=== PATIENT | female | born 1955 | race Hispanic/Latino ===

== ENCOUNTER 2017-02-27 22:32 | Observation (INO) | payer OTHER, MEDICAID ==
[~2017-02-27] VITALS: Ht 157.5 cm; Wt 90.3 kg
[~2017-02-27 22:32] MED LIST: ARIP5TAB13 PO; ASA325 PO; CLONAZEPAM1 M1 PO; FLE10 PO; GABA300C PO; INSU100C6 SQ; LISI40TA13 PO; OXYC-176 PO; PRAV80TA2 PO; [UNRECOGNIZED DRUG - CODE] TOP; levothyroxine
[2017-02-27 22:33] VITALS: BP 157/96; PULSE 109; RESP 18; O2SAT 96
[2017-02-27 23:38] LABS: BASOPHILS % (AUTO) 0.3 % (0-3); EOSINOPHILS % (AUTO) 2.4 % (0-5); Mean Corpuscular Hemoglobin 27.5 pg (27.0-35.0); Mean Corpuscular Volume 85.2 fL (81-100); NEUTROPHILS % (AUTO) 55.1 % (40-74); Platelet Count 154 bil/L (150-400)
[2017-02-28] VITALS (10 sets, daily range): BP systolic 92–125; BP diastolic 53–77; PULSE 75–109; RESP 14–20; O2SAT 95–98
[2017-02-28 00:14] LABS: Magnesium 1.6 mg/dL (1.6-2.6); TROPONIN T 0.01 ug/L (0.0-0.011)
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
[2017-02-28] MEDS ORDERED: oxyCODONE-Acetamin 5-325 mg Tablet PO ONE (00:35)
[2017-02-28] MEDS ORDERED: HYDROmorphone 1 mg/mL Inj IVPUSH ONE ×2 (01:35→01:50)
[2017-02-28 01:55] LABS: APPEARANCE,URINE HAZY (CLEAR,HAZY); COLOR,URINE YELLOW (YELLOW); OCCULT BLOOD,URINE TRACE (NEGATIVE); PH,URINE 5.5 (5.0-8.0); UROBILINOGEN,URINE NORMAL (NORMAL); YEAST,URINE FEW (NONE SEEN)
[2017-02-28] MEDS ORDERED: 0.9% Sodium Chloride 500 ML IV ONE (02:15)
[2017-02-28] MEDS ORDERED: LidocaineVisc 2%:Antacid 1:1 10 mL Syringe PO ONE (02:30)
[2017-02-28] MEDS: 0.9% Sodium Chloride 1,000 ML IV SCH ×2 (03:24→15:54)
[2017-02-28] MEDS ORDERED: Polyethylene Glycol (PEG) 17 Gm Powder PO PRN (03:25)
[2017-02-28] MEDS ORDERED: Ondansetron 2 mg/mL 2 mL Inj IVPUSH PRN (03:25)
[2017-02-28] MEDS ORDERED: Alum-Mag Hydrox-Simeth 30 mL Suspension PO PRN (03:25)
[2017-02-28] MEDS ORDERED: Senna-Docusate 8.6-50 mg Tablet PO PRN (03:25)
[2017-02-28] MEDS ORDERED: Atropine 1 mg/10 mL (Code) Syringe IVPUSH PRN (03:25)
[2017-02-28] MEDS ORDERED: Glucose 40% Oral Gel 15 Gm Tube PO PRN (03:35)
[2017-02-28 03:53] LABS: INR 0.94 ratio
[2017-02-28 04:03] LABS: Magnesium 1.7 mg/dL (1.6-2.6)
[2017-02-28] MEDS ORDERED: depression med (05:21)
[2017-02-28] MEDS ORDERED: ASPI-973 PO (05:21)
--- NOTE | 2017-02-28 05:27 | PCM.HPMED ---
Subjective Date of Service Feb 28, 2017 Primary Provider: Admitting Physician: Rose Lei DO Primary Care Physician: Tyson Ramirez MD Attending Physician: Rose Lei DO Admit Status: From the Emergency Department Chief Complaint: Chest pain History of Present Illness: Patient is a 61 y.o. F with a medical history of SVT status post cardiac ablation, lupus, diabetes mellitus, hyperlipidemia, and hypertension. She presented to the ED 02/27/17 via private vehicle complaining of chest pain that began suddenly at 2200 in the evening while getting ready for bed. Pain is described as someone "sitting" on her chest, rated 8/10 at the worse and currently 2/10, with radiation down into her upper right abdomen and her back, fluctuates in scale but remains constant. Pain is made worse with exertion and improves with rest. Associated symptoms include nausea, shortness of breath with exertion. Patient denies diaphoresis, palpitations, vomiting. At time of examination patient stated the pain medications in the ED have helped and she feels like her abdominal/flank pain is worse, she denies current shortness of breath. Patient stated that she has had right sided flank pain that has been present for almost a year that worsened two days ago, patient stated that pain is cramping sometimes sharp, with radiation down right flank to hip, abdomen, back , increased with laying flat, decreases with pain medication. Associated symptoms include dysuria, constipation (patient stated that she has tried multiple OTC remedies for constipation with little to no effect, last BM two days ago, without blood, patient is able to pass gas). Patient stated that she has chronic back pain and has had to increase her use of hydrocodone to help with pain, stated she has been doubling her dose. Patient denies syncope, fever , chills, diarrhea, PND, orthopnea. Patient stated that her primary care physician has ordered a repeat upper and lower endoscopy but she has been unable to complete the bowel preparation, additionally PCP ordered an abdominal US to be done but patient has not scheduled appointment yet In the ED patient given nitroglycerin x 2 with minimal relief, rebound headache occurred, trial of GI cocktail had no effect on abdominal pain, Dilaudid x 2 was successful in improving pain but did not completely resolve it, lorazepam was given and this further helped her pain. Give risck factors for hypercoagulable state patient was sent for CTA chest and CT abdomen and pelvis, CT scans were positive for hyposteatosis and splenomegaly (13cm) but negative for PE, infection, abscess. Patient reassessed and stated that her chest pain has improved, however, her abdominal pain still persists. Review of Systems: A comprehensive review of systems was conducted with the patient and found to be negative except as above in the History of Present Illness Allergies Coded Allergies: Penicillins (Verified Allergy, Unknown, 06/13/15) Sulfa (Sulfonamide Antibiotics) (Verified Allergy, Unknown, 06/13/15) acetaminophen (Verified Allergy, Unknown, 06/13/15) bupropion (Verified Allergy, Unknown, 06/13/15) duloxetine (Verified Allergy, Unknown, 01/31/15) hydrocodone (Verified Allergy, Unknown, 01/31/15) Pt denies allergies to hydrocodone - currently takes this medication prn Home Medications ([levothyroxine]) 37.5 MCG DAILY Aripiprazole-Expunged Drug, Do Not Renew! (Aripiprazole-Expunged Drug, Do Not Renew!) 5 Mg Tablet 5 MG PO BID Aspirin-Expunged Drug, Do Not Renew! (Aspirin-Expunged Drug, Do Not Renew!) 325 Mg Tablet 325 MG PO DAILY Clobetasol-Expunged Drug, Do Not Renew! (Temovate 0.05%-Expunged Drug, Do Not Renew!) 60 Mg Tube 1 APPL TOP PRN APPLY TO AFFECTED AREA Cyclobenzaprine-Expunged Drug, Do Not Renew! (Flexeril-Expunged Drug, Do Not Renew!) 10 Mg Tablet 10 MG PO DAILY Gabapentin-Expunged Drug, Do Not Renew! (Neurontin-Expunged Drug, Do Not Renew! ) 300 Mg Capsule 300 MG PO HS INSULIN GLARGINE-Expunged Drug, Do Not Renew! (Lantus-Expunged Drug, Do Not Renew!) 100 Unit/1 Ml Cartridge 5 SQ AM Lisinopril-Expunged Drug, Do Not Renew! (Lisinopril-Expunged Drug, Do Not Renew! ) 40 Mg Tablet 40 MG PO BID ClonazePAM-Expunged Drug, Do Not Renew! (ClonazePAM-Expunged Drug, Do Not Renew! ) 1 Mg Tablet 2 MG PO BID PRN PRN Take up to twice a day as needed. Oxycodone/APAP-Expunged Drug, Do Not Renew! (Percocet 5/325-Expunged Drug, Do Not Renew!) 1 Each Tablet 1 TAB PO TIDP PRN PRN Jessica Hilton. [id number] 1955 06/25/2016 01:10 PM Page: 12/05 MEDICATIONS Medication Dose Sig Description Comments Abilify 5 mg tablet 5 mg take 1.5 Tablet by oral route 2 times every day Will start 5-24 aspirin 325 mg tablet,delayed release 325 mg take 1 tablet by oral route every day clobetasol 0.05 % Ointment 0.05 % apply by topical route 2 times every day a thin layer to the affected area(s) clonazepam 2 mg tablet 2 mg take 1 tablet by oral route 4 times every day Correctol 5 mg tablet 5 mg luis armando e4 tablets by oral route Durable Medical Equipment wheelchair Flexeril 10 mg tablet 10 mg take 2 Tablet by oral route every day as needed gabapentin 300 mg Cap 300 mg take 3 Capsule by oral route every bedtime not taking Golytely 236 gram-22.74 gram-6.74 gram-5.86 gram oral solution 236 gram-22.74 gram-6.74 gram-5.86 gram-2.97 gram take as directed lancets test sugars twice daily for blood glucose levels Lantus Solostar 100 unit/mL (3 mL) Sub-Q Insulin Pen 100 unit/mL (3 mL) inject by subcutaneous route as per insulin protocol Levaquin 750 mg tablet 750 mg take 1 tablet by oral route every day levothyroxine 25 mcg tablet 25 mcg take 1.5 Tablet (37.5MCG) by oral route every day for thyroid. ' lisinopril 40 mg Tab 40 mg take 1 tablet (40MG) by ORAL route 2 times every day Pen Needle 31 X 16" 31 gauge X 04/15" use as directed with insulin pens Percocet 5 mg-325 mg Tab 5 mg-325 mg take 1 tablet by ORAL route 3 times every day as needed pravastatin 80 mg tablet 80 mg take 1 tablet by oral route every day ranitidine 150 mg tablet 150 mg take 1 tablet by oral route 2 times every day Suprep Bowel Prep Kit 17.5 gram-3.13 gram-1.6 gram oral solution 17.5 gram-3.13 gram-1.6 gram take as directed by Oral route Test Strips STRIP use to test blood glucose levels 2 to 3 times daily for diabetes. PMH The patient has no history of myocardial infarction or heart disease. Prior negative stress test 2009 h/o Lupus Discoid and systemic Fibromyalgia SVT s/p [place] [address] Valentina VILLALBA, type 2 HTN HLD Anxiety TIA 4 years ago Chronic back pain Hypothyroidism Migraine headaches Surgical History Hystrectomy Cardiac ablation Endoscopy and colonoscopy 2010, patient stated that 4 polyps were found and she is due for a repeat examination Family History Father's side has a history of heart disease onset in their late 80's. Son with Renal cell carcinoma Social History Hx Alcohol Use: No Hx Substance Use: No Hx Tobacco Use: No Smoking Status: Never Smoker Exam Vital Signs Vital Sign - Last Date Time Temp Pulse Resp B/P Pulse Ox O2 Delivery O2 Flow Rate FiO2 02/27/17 22:33 36.8 109 18 157/96 96 Room Air Exam General: No acute distress, well-developed, well-nourished, appropriately interactive, obese woman laying supine in ED [facility] [place]. HEENT: Normocephalic, atraumatic. External ears without defect. Pupils equal, round, and reactive to light and accommodation. Anicteric sclerae, moist conjunctivae, and no lid lag. Oral mucosa pink/moist Neck: Supple with full range of motion. No jugular venous distension. No bruits. No lymphadenopathy or thyromegaly. Cardiovascular: Regular rate and rhythm with no murmurs, rubs, or gallops appreciated Pulmonary: Wide AP diameter, decreased air movement at bases of lungs, clear to auscultation bilaterally with no crackles, wheezes, or rhonchi. Normal respiratory effort with no use of accessory muscles. Abdomen: Tenderness to palpation in RUQ and LUQ. Bowel tones present, normoactive. Soft, nondistended. No hepatomegaly, splenomegaly felt on exam, no abdominal masses appreciated. Extremities: No clubbing, cyanosis, edema, or lymphadenopathy appreciated. Skin: Normal temperature, turgor, and texture; no rash, ulcers, or subcutaneous nodules appreciated. Neurological: Cranial nerves grossly intact. Normal muscle strength, tone, and bulk. Reflexes, coordination, and sensory function within normal limits. No known gait impairment. Psychiatric: Normal mood and affect. Alert and oriented to person, place, and time. Lymphatic: No lymphadenopathy noted on exam. Lab and Diagnostics Result Diagram: 02/27/17231902/27/172319 X-Rays, CTs and MRIs Chest Xray Impression: No acute cardiopulmonary process. View: Portable Interpretation / Wet Read by: Wet read ED physician CTA Chest - Report reviewed no sign of PE CT Abdomen and Pelvis -Report reviewed enlarged spleen at 13 cm, steatohepatitis, no sign of diverticulosis, abscess, 12-lead ECG ECG Interpretation: Normal sinus rhythm, Rate 99 no ischemic changes Time: 22:45 Interpreted by: ED physician ECG Interpretation: Sinus rhythm, Rate 96 No acute ischemic changes Time: 01:58 Interpreted by: ED physician Reviewed and agree with interpretation Assessment & Plan Patient is a 61 y.o. F with a medical history of SVT status post cardiac ablation, lupus, diabetes mellitus, hyperlipidemia, and hypertension. Patient admitted for treatment of abdominal pain, r/o ACS and PE. 1. Angina, acute - Likely stable angina, need to r/o PE and ACS, CP improved with IV pain medicaiton - CTA chest negative for PE - Serial EKG done in ED show no signs of ST changes concerning for NSTEMI/STEMI - Inial troponin negative, trend Q6 - PRN EKG for Chest pain - PRN Morphine for CP - PRN Nitroglycerin SL for CP - ECHO ordered - Stress test ordered - Continue ASA 81 mg daily - Metoprolol held per stress test tomorrow - Held Lisiniopril for low BP - Start Atorvastatin 40 mg PO QD - IVF hydration NS @ 80 mls/hr -Repeat CBC, CMP, lipid panel and hgba1c in AM 2. Abdominal pain, acute - Localized to right flank per pt history, physical exam findings of RUQ and LUQ pain, consider opioid induced constipation, gastritis, developing SBO, splenic vein infarct - Likely generalized pain from constipation, last BM two days ago, patient is afebrile, no diverticulitis, obstruction, abscess noted on CT scan, WCT normal - Schedule bowel meds - Abdominal US ordered - Stool guaiac ordered - Hydrocodone 5-325 Q6 PRN Abdominal pain - Patient is due for an upper and lower endoscopy, however, this can likely be completed on an outpatient bases. - Repeat CMP and CBC in AM - Continue with fluids as above #1 - UA negative for infection, culture ordered, 3. Enlarged spleen, unknown chronicity - CT scan showed enlarged spleen 13 cm, spleen palpated on exam with LUQ tenderness, although difficult to full appreciate given patient generalized abdominal pain - Patient has known history of lupus, hyposteatosis, in the setting of abdominal pain likely secondary to constipation, it is less likely that there is splenic infarct/splenic venous thrombosis WCT normal, no fever, vague abdomnial pain, however this cannot be completely ruled out with an elevated D- Dimer - LDH, pending - Abdominal US ordered in AM Chronic conditions h/o Lupus Discoid and systemic - No home medications, pt controls flares of rash with OTC hydrocortisone cream Fibromyalgia - Hold home medication, continue with pain management as above #1 SVT s/[place] [address] [place], presumed stable - Continue to monitor DM, type 2 - Patient take Lantus 30 units in AM, no correctional insulin at home - Continue AM lantus at 20 units - Medium correctional scale ordered HTN - Continue home medication HLD - Continue statin Anxiety - Lorazepam 0.5 mg TID PRN anxiety TIA 4 years ago, presumed stable - continue to monitor - No focal neurological deficit on exam Chronic back pain Hypothyroidism - Continue home levothyroxine Migraine headaches - Continue acetaminophen PRN 650 mg PO Q8 Depression - Last med rec on file from out patient 06/25/16 is not up to date per patient - Abilify 5 mg BID PO in file, patient states this is not the right medication, but is not sure what medication or dose is - PCP Dr. Landa, hold depression medication until records are obtained or patient can have someone bring in the bottle to confirm - Pharmacy [facility] in [place] [phone], requested RN to confirm medication rec with pharmacist who will not be in until 0900 CODE STATUS FULL CODE DVT: SCD, SQ heparin GI: Famotidine Patient is admitted under inpatient status with expected length of stay greater than 2 midnights due to severity of presenting symptoms, risk of adverse event, and complexity of treatment plan. Pain Evaluation: Adequate Pain Control GI Prophylaxis: H2 bob VTE Prophylaxis: Sub-Q Heparin (Unfractionated) Resuscitation Status: CPR: Attempt Resuscitation Attending Statement The patient was seen and examined together with house staff on 02/28/2017 and I agree with the history, exam and plan as outlined in the note above. NICHOLE MORRIS DO Feb 28, 2017 04:35 Rose Lei DO Feb 28, 2017 06:13
[2017-02-28 06:11] LABS: BASOPHILS % (AUTO) 0.2 % (0-3); EOSINOPHILS % (AUTO) 1.9 % (0-5); MONOCYTES % (AUTO) 6.4 % (4-12); Mean Corpuscular Volume 85.4 fL (81-100); NEUTROPHILS % (AUTO) 52.7 % (40-74); Platelet Count 152 bil/L (150-400)
--- NOTE | 2017-02-28 06:22 | NUR ---
Admit to 1020 Pt arrived from ED at 0450, alert and fully oriented, able to transfer self to BR and bed with steady gait. Reports pain mostly resolved, now 01/10. Denies SOB. IV fluids infusing, BG AC and HS, NPO for stress test in am, tele and oximetry monitoring in place. has reviewed med rec, would like verification from pharmacy after 0900. Oriented to hospital routines, plan of care, hourly rounding ongoing.
[2017-02-28] MEDS: Insulin LISPRO 300 Unit/3 mL Inj SUBQ SCH ×4 (07:46→21:15)
[2017-02-28] MEDS ORDERED: Famotidine Inj 50 ML IV SCH (08:30)
[2017-02-28] MEDS: Sodium Chloride LOK Flush 10 mL Syringe IVFLUSH SCH ×2 (08:30→16:37)
[2017-02-28] MEDS: Heparin 5,000 Unit/mL Inj SUBQ SCH ×2 (08:30→17:22)
--- NOTE | 2017-02-28 08:43 | DRSVH ---
PROCEDURE: X-RAY CHEST ONE VIEW, PORTABLE ([id number]) INDICATIONS: CHEST PAIN TECHNIQUE: One view of the chest was acquired. COMPARISON: [facility], , CHEST 1VW (PORTABLE), 06/18/2013, 9:39. FINDINGS: Surgical changes and devices: None. Lungs and pleura: No pleural effusions or pneumothorax. Lungs are clear. Mediastinum: Mediastinal contours appear normal. Heart size is normal. Bones and chest wall: No suspicious bony lesions. Overlying soft tissues appear unremarkable. IMPRESSION: No acute cardiopulmonary disease. Dictated by: Deniz Moran [facility] Interpreted: Noemy Craig MD on 02/28/2017 at 8:42 Transcribed by: EDWIN on 02/28/2017 at 8:42 Approved by: Noemy Craig MD, PhD on 02/28/2017 at 12:50
[2017-02-28] MEDS: Senna-Docusate 8.6-50 mg Tablet PO SCH ×2 (08:46→21:16)
--- NOTE | 2017-02-28 09:02 | DRSVH ---
PROCEDURE: CT ANGIO CHEST PULMONARY EMBOLISM ([id number]) INDICATIONS: pain, dimer+ TECHNIQUE: After the administration of intravenous contrast, 2 mm thick sections acquired from the pulmonary api alicia to the posterior costophrenic angles. 3-dimensional maximum intensity projection (MIP) coronal a nd sagittal reformats were then acquired through the thorax. For radiation dose reduction, the follo wing was used: automated exposure control, adjustment of mA and/or kV according to patient size. COMPARISON: [facility], CT, CT ABD PELVIS W CON, 02/28/2017, 3:27. FINDINGS: Image quality: Excellent. Pulmonary arteries: Pulmonary arteries are normal in size, and demonstrate no intraluminal filling d efects to suggest central pulmonary embolism. Lungs and pleura: Bibasilar atelectasis. Lungs are otherwise clear. No pleural effusions or pneumo thorax. Central and peripheral airways are patent. Mediastinum: Heart size is normal, without pericardial effusion. No mediastinal or hilar adenopathy . Thoracic aorta is normal in caliber and enhancement. Esophagus is normal in caliber, without hiat al hernia. Bones and chest wall: No suspicious bony lesions. Ribs and thoracic spine appear intact throughout. Thyroid gland is normal. No axillary or supraclavicular adenopathy. Abdomen: Liver demonstrates a nodular contour. The spleen is mildly enlarged but partially visualize d. IMPRESSION: 1. No evidence of acute central pulmonary embolism. 2. Bibasilar atelectasis. 3. Nodular contour of liver suspicious for cirrhosis. Please correlate clinically. 4. Mild splenomegaly. No significant discrepancy with the farm service consultant radiology preliminary report. Dictated by: Bebo Hale M.D. on 02/28/2017 at 8:56 Approved by: Bebo Hale M.D. on 02/28/2017 at 9:01
--- NOTE | 2017-02-28 09:24 | DRSVH ---
PROCEDURE: CT ABDOMEN AND PELVIS WITH CONTRAST ([id number]) INDICATIONS: 61 year-old woman with right upper abdominal pain. TECHNIQUE: After the administration of intravenous contrast, 5 mm thick sections acquired from the diaphragm to the symphysis. 5 mm coronal and sagittal reformats were acquired. For radiation dose reduction, the following was used: automated exposure control, adjustment of mA and/or kV according to patient siz e. COMPARISON: [facility], CT, CT ANGIO CHEST PE, 02/28/2017, 3:27. [facility], CT, ABD/PELVIS W/CON (PNL), 06/13/2015, 20:20. FINDINGS: Image quality: Excellent. ABDOMEN: Lung bases: Lung bases are clear. Heart size is normal. A tiny hiatal hernia is noted Solid organs: Liver is enlarged measuring 22.1 cm in length and demonstrates mild hepatic fatty infi ltration. Spleen is prominent in size measuring 13 cm in length. Gallbladder is normal. Biliary sys tem is non dilated. Pancreas enhances normally. No adrenal nodules. Kidneys demonstrate normal siz e and enhancement, without hydronephrosis. Peritoneum and bowel: Bowel loops demonstrate normal wall thickness and caliber. No free fluid or a ir. Nodes and vessels: No retroperitoneal or mesenteric adenopathy by size criteria. Aorta and inferior vena cava are normal in size. Miscellaneous: A tiny fat containing umbilical hernia is noted. PELVIS: Genitourinary: Bladder wall thickness is normal. Miscellaneous: No inguinal hernias or adenopathy. Bones: No suspicious bony lesions. No vertebral body compression fractures. IMPRESSION: 1. No acute interval abdominal/pelvic process. 2. Hepatosplenomegaly. This finding is nonspecific and requires clinical correlation and follow up. 3. Tiny fat-containing umbilical hernia. No significant discrepancy with the warehouse worker 2nd shift radiology preliminary report. Dictated by: Bebo Hale M.D. on 02/28/2017 at 9:18 Approved by: Bbeo Hale M.D. on 02/28/2017 at 9:24
--- NOTE | 2017-02-28 10:38 | DRSVH ---
PROCEDURE: US ABDOMEN, LIMITED ([id number]) INDICATIONS: RUQ/LUQ pain, splenomeg r/o splenic infarct/thomb TECHNIQUE: Real-time focused scanning was performed of the abdomen, with image documentation. COMPARISON: [facility], CT, CT ABD PELVIS W CON, 02/28/2017, 3:27. FINDINGS: Limited exam demonstrating grossly normal appearance of the spleen measuring roughly 11.2 c m. No perisplenic fluid seen. IMPRESSION: Limited exam demonstrating normal appearance of the spleen. Dictated by: Deniz LOBOA Interpreted: Noemy Craig MD on 02/28/2017 at 10:37 Transcribed by: EDWIN on 02/28/2017 at 10:38 Approved by: Noemy Craig MD, PhD on 02/28/2017 at 16:36
[2017-02-28] MEDS: Insulin GLARgine 100 Unit/mL Syringe SUBQ SCH (11:54)
--- NOTE | 2017-02-28 13:39 | DRSVH ---
PROCEDURE: NM HIDA SCAN WITH CCK PHARMACEUTICAL: 4.83 mCi Tc-99m mebrofenin IV; 1.78 mcg CCK IV. INDICATIONS: ruq pain. TECHNIQUE: Following intravenous administration of Tc-99m mebrofenin, sequential anterior abdominal images were obtained. To evaluate the contractile response of the gallbladder in response to Cholecystokinin (CC K), sincalide (0.02 g/kg) was administered by slow intravenous infusion approximately 60 minutes aft er the administration of the radiopharmaceutical. Sequential imaging was continued for [address] the start of CCK infusion. Gallbladder ejection fraction was calculated. COMPARISON: None. FINDINGS: Biliary scan: There is normal tracer uptake and excretion by the liver. There is normal visualizati on of the intrahepatic ducts, common bile duct, and gallbladder. There is normal tracer transit into the duodenum. CCK stimulation: There is normal contractile response of the gallbladder to CCK infusion. The calcu lated gallbladder ejection fraction is 78%; normal values are above 35%. It has been shown that any patient abdominal pain after CCK administration is related to the rate of CCK injection, rather than to any underlying gallbladder disease (Clinical Nuclear Medicine 2012; 37: 63-70. Journal of Nuclear Medicine 2014; 55: 1-9). IMPRESSION: Normal examination. Dictated by: Noemy Craig MD, PhD on 02/28/2017 at 13:33 Approved by: Noemy Craig MD, PhD on 02/28/2017 at 13:38
--- NOTE | 2017-02-28 15:11 | DRSVH ---
[facility] [address] [place] [address] Echocardiogram Report Name: BERNABE MENDEZ EStudy Date : 02/28/2017 Height: 62 in Hospital Exam Location: [facility] Weight: 197 lb Gender: Female BSA: 1.9 m2 : 1955 Age: 61 yrs BP: 115/77 mmHg Reason For Study: Chest pain Ordering Physician: HOSPITALIST [facility] Performed By: Abdiel Montoya Referring Physician: NICHOLE MORRIS Interpretation Summary The left ventricular cavity is small. The ejection fraction is estimated to be 65-70%. The right ventricle is grossly normal size. The right ventricular systolic function is normal. No significant valvular pathology seen. The IVC is of normal diameter and collapses greater than 50% with a sniff. This suggests a low right atrial pressure of 3 mm Hg. Procedure: A two-dimensional transthoracic echocardiogram with color flow and Doppler was performed. The study quality was technically adequate. Comparison is made with the echocardiogram of 02/06/12. The patient was in normal sinus rhythm during the exam. Left Ventricle: The left ventricular cavity is small. Proximal septal thickening is noted. There is no echo evidence for significant left ventricular outflow tract obstruction. There is no thrombus. A false chord is noted (normal variant). The ejection fraction is estimated to be 65-70%. There has been no significant change since the previous study. There are no focal wall motion abnormalities. Spectral Doppler of the mitral valve is reversed, with an E/A wave ratio < 1.0. Right Ventricle: The right ventricle is grossly normal size. A moderator band is seen in the right ventricle. The right ventricular systolic function is normal. Atria: The left atrial size is normal. The left atrium has remained unchanged in size since the prior echo exam. Right atrium is small. There has been no significant change since the previous study. The interatrial septum is intact with no evidence for an atrial septal defect. Mitral Valve: The mitral valve leaflets are slightly calcified. There is trace mitral regurgitation. Aortic Valve: The aortic valve is trileaflet. The aortic valve opens well. There is no aortic valve stenosis. No aortic regurgitation is present. Tricuspid Valve: The tricuspid valve is not well visualized, but is grossly normal. Pulmonary artery pressures cannot be estimated because of the lack of a measurable TR jet velocity. Pulmonic Valve: The pulmonic valve is not well seen, but is grossly normal. There is trace pulmonic regurgitation. Great Vessels: The aortic root is normal size. The dimensions of the ascending aorta are normal. The pulmonary artery is normal size. The IVC is of normal diameter and collapses greater than 50% with a sniff. This suggests a low right atrial pressure of 3 mm Hg. Pericardium/ Pleura There is no pericardial effusion. There is no pleural effusion. MMode/2D Measurements & Calculations LVIDd: 3.6 cm RA long axis LVOT diam: 2.1 cm LVIDs: 2.4 cm LA A2 area: 16.6 cm AoV Opening FS: 32.6 % LA A4 area: 18.5 cm RA area LA length (vol) Ao root diam : 10.6 cm LA vol: 51.1 ml RA vol asc Aorta Diam LA vol index : 25.1 ml RA Ao Arch Diam (Prox : 26.9 ml/m2 : 13.2 mm2 Trans): 3.1 cm LV ribeiro. diameter/BSA LV sys. diameter/BSA (cm/m^2): 1.9 (cm/m^2): 1.3 Doppler Measurements & Calculations Ao V2 max: 163.8 cm/secMV E max anibal MV E/A: 0.77 PA V2 max Ao max P.7 mmHg : 75.9 cm/sec Med Peak E' Anibal : 62.5 cm/sec Ao mean P.1 mmHg MV A max anibal PA mean PG LVOT Max Anibal : 98.3 cm/sec E/E' med: 14.4 : 0.92 mmHg : 94.8 cm/sec DEON(I,D): 2.2 cm sev ratio: 0.65 MV dec time: 0.20 sec Ao V2 mean LV V1 max PG PA V2 mean : 108.0 cm/sec : 46.8 cm/sec Ao V2 VTI: 28.0 cm LV V1 VTI: 18.2 cmPA pr(Accel) DEON(V,D): 2.0 cm2 : 24.5 mmHg DEON indexed to BSA (cm^2/m^2): 1.2 Reading Physician:CHELO
[2017-02-28] MEDS ORDERED: KLO2T PO (15:58)
[2017-02-28] MEDS ORDERED: SERT50TA9 PO (15:58)
[2017-02-28] MEDS ORDERED: OXYC1TAB24 PO (15:58)
[2017-02-28] MEDS ORDERED: LEVO-86 PO (15:58)
[2017-02-28] MEDS ORDERED: ATOR20TA65 PO (15:58)
[2017-02-28] MEDS ORDERED: LISI40TA PO (15:58)
[2017-02-28] MEDS ORDERED: INSU100V7 SUBQ (15:58)
[2017-02-28] MEDS ORDERED: CYCL10TA9 PO (15:58)
--- NOTE | 2017-02-28 16:14 | NUR ---
Social Work- Brief Note Data: EMR reviewed. Pt is a 61 year old female admitted 02/28/17 under observation status for Chest Pain. Pt's insurance is [employer] and PCP is Tyson Ramirez MD. Per chart review, Pt resides in Home with her spouse where she remains independent at base. Pt had HIDA scan today. Pt has no DPOA on file, RN requested family bring copy. Anticipate pt to discharge home with no discharge needs. SW will continue to follow if needs arise. Assessment: Pt who is independent at base. Plan: Anticipate Pt to discharge home with to transport via POV. No anticipated discharge needs. SW will continue to follow. REYMUNDO Haro
[2017-02-28] MEDS ORDERED: LidocaineVisc 2%:Antacid 1:1 10 mL Syringe PO SCH (16:35)
--- NOTE | 2017-02-28 17:42 | PCM.PNMED ---
Subjective Date of Service Feb 28, 2017 Subjective Patient complaining of chest/epigastric pain and tenderness in the right upper quadrant no dyspnea, no nausea or vomiting Exam Vital Signs Vital Sign - Last Date Time Temp Pulse Resp B/P Pulse Ox O2 Delivery O2 Flow Rate FiO2 02/28/17 16:57 36.9 91 18 125/53 97 Room Air 02/28/17 04:56 2 Intake and Output 02/27/17 02/27/17 02/28/17 Cumulative From/Thru 15:00 23:00 07:00 02/27/17 22:33 - 02/28/17 05:56 Intake Total 1000 ml 1000 ml Output Total 0 ml 0 ml Balance 1000 ml 1000 ml Intake Oral 0 ml 0 ml IV Total 1000 ml 1000 ml Output Urine Total 0 ml 0 ml # Voids 0 0 # Bowel Movements 0 0 Exam Gen.- A+ O 3 no apparent distress. Obese female Eyes- open conjunctiva clear, pupils equal nonicteric Mouth- oral mucosa moist, no exudate ENT- ears normal, nose normal Neck- supple/trach midline CVS- RRR no murmur or gallop Lungs- CTA GI- NABS/NT soft, tender in the right upper quadrant in particular Musc- moving 4 no obvious deformity Neuro- cranial nerves II through XII intact to gross examination, nonfocal Skin- warm and dry, no rashes/lesions/wounds noted Psych- pleasant and appropriate, Lab and Diagnostics Trops are normal, LFTs normal LD H 264 02/28 Result Diagram: 02/28/17 0510 02/28/17 0500 X-Rays, CTs and MRIs HIDA-normal 02/28 Limited ultrasound spleen-normal 02/28 Chest Xray Impression: No acute cardiopulmonary process. 02/28 CTA Chest - Report reviewed no sign of PE 02/28 CT Abdomen and Pelvis -Report reviewed enlarged spleen at 13 cm, steatohepatitis, no sign of diverticulosis, abscess, 02/28 12-lead ECG ECG Interpretation: Normal sinus rhythm, Rate 99 no ischemic changes Time: 22:45 Interpreted by: ED physician ECG Interpretation: Sinus rhythm, Rate 96 No acute ischemic changes Time: 01:58 Interpreted by: ED physician Reviewed and agree with interpretation Cardiac Echo Impressions Echo 02/28 Interpretation Summary The left ventricular cavity is small. The ejection fraction is estimated to be 65-70%. The right ventricle is grossly normal size. The right ventricular systolic function is normal. No significant valvular pathology seen. The IVC is of normal diameter and collapses greater than 50% with a sniff. This suggests a low right atrial pressure of 3 mm Hg. Assessment & Plan Patient is a 61 y.o. F with a medical history of SVT status post cardiac ablation, lupus, diabetes mellitus, hyperlipidemia, and hypertension. Patient admitted for treatment of abdominal pain, r/o ACS and PE. 02/28 extensive workup in patient with ongoing symptoms thus far unrevealing, HIDA scan done in lieu of Myoview. This cannot be done until Friday 03/02 if it needs to be done. Patient continues to have abdominal/epigastric pain without EKG changes or troponin I am trying a GI cocktail. Patient has some prominence of stool in the right upper quadrant on her CT scan perhaps bowel cleansing and motility abnormality. After a pretty extensive workup with find no abnormalities, patient continues to have pain probably IBS, might be able to discharge home 03/01. Otherwise perhaps doing Myoview 03/02 which is the earliest he can be done. She is now eating and her vitals are stable despite her ongoing complaints of pain and discomfort. # Chest/epigastric pain- doubt cardiac - CTA chest negative for PE, - Serial EKG done in ED show no signs of ST changes concerning for NSTEMI/STEMI, troponins negative #Hypotension- SBP 100-120 off lisinopril #Abdominal pain, acute-patient was tender in the right upper quadrant so I canceled the Myoview and went with a HIDA scan 02/28 - Localized to right flank per pt history, physical exam findings of RUQ and LUQ pain, consider opioid induced constipation, gastritis, developing SBO, splenic vein infarct # Enlarged spleen, unknown chronicity- ultrasound did not showed normal spleen 11.2 cm 02/28 h/o Lupus Discoid and systemic - No home medications, pt controls flares of rash with OTC hydrocortisone cream Fibromyalgia- Hold home medication, continue with pain management as above #1 SVT s/[place] [address] [place], presumed stable- Continue to monitor DM, type 2- BS 120-190 with Lantus 20 units - Patient take Lantus 30 units in AM, no correctional insulin at home - Continue AM lantus at 20 units - Medium correctional scale ordered HTN- home medication lisinopril held HLD- - Continue statin Anxiety- Lorazepam 0.5 mg TID PRN anxiety TIA 4 years ago, presumed stable - continue to monitor - No focal neurological deficit on exam Chronic back pain Hypothyroidism - Continue home levothyroxine Migraine headaches - Continue acetaminophen PRN 650 mg PO Q8 Depression - Last med rec on file from out patient 06/25/16 is not up to date per patient - Abilify 5 mg BID PO in file, patient states this is not the right medication, but is not sure what medication or dose is - PCP Dr. Landa, hold depression medication until records are obtained or patient can have someone bring in the bottle to confirm - Pharmacy [facility] in [place] [phone], requested RN to confirm medication rec with pharmacist who will not be in until 0900 CODE STATUS FULL CODE DVT: SCD, SQ heparin GI: Famotidine Patient is admitted under inpatient status with expected length of stay greater than 2 midnights due to severity of presenting symptoms, risk of adverse event, and complexity of treatment plan. Medically complex patient greater than 40 minutes GI Prophylaxis: H2 bob VTE Prophylaxis: Sub-Q Heparin (Unfractionated) VTE Mechanical Devices: Intermittant Pneumatic CD Resuscitation Status: CPR: Attempt Resuscitation Eros Small MD Feb 28, 2017 17:42 - PCP Dr. Landa, hold depression medication until records are obtained or patient can have someone bring in the bottle to confirm - Pharmacy [facility] in [place] [phone], requested RN to confirm medication rec with pharmacist who will not be in until 0900 CODE STATUS FULL CODE DVT: SCD, SQ heparin GI: Famotidine Patient is admitted under inpatient status with expected length of stay greater than 2 midnights due to severity of presenting symptoms, risk of adverse event, and complexity of treatment plan. GI Prophylaxis: H2 bob VTE Prophylaxis: Sub-Q Heparin (Unfractionated) VTE Mechanical Devices: Intermittant Pneumatic CD Resuscitation Status: CPR: Attempt Resuscitation Eros Small MD Feb 28, 2017 17:42
--- NOTE | 2017-02-28 19:01 | NUR ---
Activity Pt has been at rest for majority of this shift. Has complained of only pressure on her chest, Hospitalist notified. EKG ordered. Bed down and locked, call light w/in reach
[2017-02-28] MEDS ORDERED: LidocaineVisc 2%:Antacid 1:1 10 mL Syringe PO PRN (20:30)
[2017-02-28] MEDS: oxyCODONE-Acetamin 5-325 mg Tablet PO PRN (23:43)
[2017-03-01] VITALS (8 sets, daily range): BP systolic 103–139; BP diastolic 69–83; PULSE 68–96; RESP 16–18; O2SAT 94–100
[2017-03-01] MEDS: Sodium Chloride LOK Flush 10 mL Syringe IVFLUSH SCH ×3 (00:29→16:30)
[2017-03-01] MEDS: Heparin 5,000 Unit/mL Inj SUBQ SCH ×3 (00:29→17:45)
--- NOTE | 2017-03-01 02:02 | NUR ---
Pain Patient continues to complain of pressure in chest, and epigastric pain. Rates pain 6-7/10. GI cocktail was given, but upon reassessment states no relief and has requested a tab of percocet which has been ordered. Verified with patient that she DOES NOT have an allergy to acetaminophen. 1 tab Percocet PO given. Upon reassessment patient states relief and rates pain 4/10. Will continue to monitor pain, and continue Q1 hour checks.
[2017-03-01] MEDS: 0.9% Sodium Chloride 1,000 ML IV SCH ×2 (04:01→15:25)
[2017-03-01 06:22] LABS: BASOPHILS % (AUTO) 0.2 % (0-3); EOSINOPHILS % (AUTO) 2.6 % (0-5); MONOCYTES % (AUTO) 6.7 % (4-12); Mean Corpuscular Hemoglobin 26.9 pg (27.0-35.0); Mean Corpuscular Volume 85.3 fL (81-100); NEUTROPHILS % (AUTO) 48.4 % (40-74); Platelet Count 128 bil/L (150-400)
[2017-03-01 06:49] LABS: TROPONIN T 0.01 ug/L (0.0-0.011)
[2017-03-01] MEDS: Insulin LISPRO 300 Unit/3 mL Inj SUBQ SCH ×4 (08:00→22:00)
[2017-03-01] MEDS: Senna-Docusate 8.6-50 mg Tablet PO SCH ×2 (08:47→19:48)
[2017-03-01] MEDS: Insulin GLARgine 100 Unit/mL Syringe SUBQ SCH (08:50)
[2017-03-01] MEDS: oxyCODONE-Acetamin 5-325 mg Tablet PO PRN (08:56)
--- NOTE | 2017-03-01 11:46 | PCM.PNMED ---
Subjective Date of Service Mar 01, 2017 Subjective Patient states she still is feeling some substernal chest pain, pressure-like. Had a normal HIDA scan normal echo. A myocardial perfusion study is pending for tomorrow 03/02. Patient currently denies shortness of breath or fever. EKG without acute ischemic changes and troponin remains negative Exam Vital Signs Vital Sign - Last Date Time Temp Pulse Resp B/P Pulse Ox O2 Delivery O2 Flow Rate FiO2 03/01/17 09:54 36.1 69 16 123/82 100 Nasal Cannula 3.00 Intake and Output 02/28/17 02/28/17 03/01/17 Cumulative From/Thru 15:00 23:00 07:00 02/27/17 22:33 - 03/01/17 05:46 Intake Total 600 ml 1380 ml 2980 ml Output Total 700 ml 650 ml 1350 ml Balance -100 ml 730 ml 1630 ml Intake Oral 600 ml 620 ml 1220 ml IV Total 760 ml 1760 ml Output Urine Total 700 ml 650 ml 1350 ml # Voids 0 # Bowel Movements 0 0 Exam Gen.- A+ O 3 no apparent distress. Obese female Eyes- open conjunctiva clear, pupils equal nonicteric Mouth- oral mucosa moist, no exudate ENT- ears normal, nose normal Neck- supple/trach midline CVS- RRR no murmur or gallop Lungs- CTA GI- NABS/NT soft, tender in the right upper quadrant in particular Musc- moving 4 no obvious deformity Neuro- cranial nerves II through XII intact to gross examination, nonfocal Skin- warm and dry, no rashes/lesions/wounds noted Psych- pleasant and appropriate IVs and Medications Medications Reviewed: Medications were reviewed in detail Lab and Diagnostics Result Diagram: 03/01/17 0545 03/01/17 0545 X-Rays, CTs and MRIs HIDA-normal 02/28 Limited ultrasound spleen-normal 02/28 Chest Xray Impression: No acute cardiopulmonary process. 02/28 CTA Chest - Report reviewed no sign of PE 02/28 CT Abdomen and Pelvis -Report reviewed enlarged spleen at 13 cm, steatohepatitis, no sign of diverticulosis, abscess, 02/28 12-lead ECG ECG Interpretation: Normal sinus rhythm, Rate 99 no ischemic changes Time: 22:45 Interpreted by: ED physician ECG Interpretation: Sinus rhythm, Rate 96 No acute ischemic changes Time: 01:58 Interpreted by: ED physician Reviewed and agree with interpretation Cardiac Echo Impressions Echo 02/28 Interpretation Summary The left ventricular cavity is small. The ejection fraction is estimated to be 65-70%. The right ventricle is grossly normal size. The right ventricular systolic function is normal. No significant valvular pathology seen. The IVC is of normal diameter and collapses greater than 50% with a sniff. This suggests a low right atrial pressure of 3 mm Hg. Assessment & Plan Patient is a 61 y.o. F with a medical history of SVT status post cardiac ablation, lupus, diabetes mellitus, hyperlipidemia, and hypertension. Patient admitted for treatment of abdominal pain, r/o ACS and PE. 02/28 extensive workup in patient with ongoing symptoms thus far unrevealing, HIDA scan done in lieu of Myoview. This cannot be done until Friday 03/02 if it needs to be done. Patient continues to have abdominal/epigastric pain without EKG changes or troponin no significant improvement with GI cocktail.. Patient has some prominence of stool in the right upper quadrant on her CT scan perhaps bowel cleansing and motility abnormality. After a pretty extensive workup with find no abnormalities, patient continues to have pain probably IBS, might be able to discharge home 03/02 after nuclear stress done. She continues to eat and her vitals are stable despite her ongoing complaints of pain and discomfort. # Chest/epigastric pain- doubt cardiac - CTA chest negative for PE, - Serial EKG done in ED show no signs of ST changes concerning for NSTEMI/STEMI, troponins negative #Hypotension- SBP 100-120 off lisinopril #Borderline UA, mixed urogenital culture, not consistent with active infection #Abdominal pain, acute-patient was tender in the right upper quadrant so I canceled the Myoview and went with a HIDA scan 02/28 - Localized to right flank per pt history, physical exam findings of RUQ and LUQ pain, consider opioid induced constipation, gastritis, developing SBO, splenic vein infarct # Enlarged spleen, unknown chronicity- ultrasound did not showed normal spleen 11.2 cm 02/28 h/o Lupus Discoid and systemic - No home medications, pt controls flares of rash with OTC hydrocortisone cream Fibromyalgia- Hold home medication, continue with pain management as above #1 SVT s[place] [address] [place], presumed stable- Continue to monitor DM, type 2- BS 120-190 with Lantus 20 units - Patient take Lantus 30 units in AM, no correctional insulin at home - Continue AM lantus at 20 units - Medium correctional scale ordered HTN- home medication lisinopril held HLD- - Continue statin Anxiety- Lorazepam 0.5 mg TID PRN anxiety TIA 4 years ago, presumed stable - continue to monitor - No focal neurological deficit on exam Chronic back pain Hypothyroidism - Continue home levothyroxine Migraine headaches - Continue acetaminophen PRN 650 mg PO Q8 Depression - Last med rec on file from out patient 06/25/16 is not up to date per patient - Abilify 5 mg BID PO in file, patient states this is not the right medication, but is not sure what medication or dose is - PCP Dr. Landa, hold depression medication until records are obtained or patient can have someone bring in the bottle to confirm - Pharmacy [facility] in [place] [phone], requested RN to confirm medication rec with pharmacist who will not be in until 0900 CODE STATUS FULL CODE DVT: SCD, SQ heparin GI: Famotidine Patient is admitted under inpatient status with expected length of stay greater than 2 midnights due to severity of presenting symptoms, risk of adverse event, and complexity of treatment plan. Pain Evaluation: Adequate Pain Control GI Prophylaxis: H2 bob VTE Prophylaxis: Sub-Q Heparin (Unfractionated) VTE Mechanical Devices: Intermittant Pneumatic CD Resuscitation Status: CPR: Attempt Resuscitation Time spent Medically complex patient greater than 40 minutes Uriel Davis DO Mar 01, 2017 11:46
--- NOTE | 2017-03-01 12:23 | NUR ---
Social Work- Readiness for Discharge Data: EMR reviewed. Pt is on day 1 of hospitalization for chest pain per H&P. Pt is ambulating, independent at base. Pt is not medically stable, anticipate 1-2 more days. Pt's HIDA scan is normal, pt's Echo is normal. Pt to receive perfusion tomorrow. SW followed up with pt regarding DPOA, pt does not have this. SW provided paperwork to pt to complete after hospitalization. Pt to discharge home with either family or friend to transport via POV. No anticipated discharge needs. SW will continue to follow. Assessment: Pt who is independent at base. Plan: Pt to discharge home with either family or friend to transport via POV. No anticipated discharge needs. SW will continue to follow. REYMUNDO Haro
--- NOTE | 2017-03-01 19:40 | NUR ---
Pain Pt complained of abdominal pain, administered PO Percocet, pt stated pain tolerable. No complaints of nausea, tolerating a general diet. Stress test scheduled for tomorrow at 0915, pt has had no caffeine today. will be NPO at midnight.
[2017-03-02] VITALS (8 sets, daily range): BP systolic 125–151; BP diastolic 77–92; PULSE 74–98; RESP 16–18; O2SAT 97–100
[2017-03-02] MEDS: Heparin 5,000 Unit/mL Inj SUBQ SCH ×3 (00:25→21:29)
[2017-03-02] MEDS: Sodium Chloride LOK Flush 10 mL Syringe IVFLUSH SCH ×4 (00:25→21:33)
--- NOTE | 2017-03-02 01:40 | NUR ---
Pain Pt reports pain at 1-2/10, 0 prn pain meds needed. She states it is sore but tolerable. Abdomen is distended with + BT, Pt is independent in room. 0 BM as of yet, Pt states she has no urge to go. Still need stool for guaiac. Pt has bee NPO since midnight for morning stress test
[2017-03-02] MEDS: 0.9% Sodium Chloride 1,000 ML IV SCH ×2 (04:44→21:31)
[2017-03-02] MEDS: Insulin LISPRO 300 Unit/3 mL Inj SUBQ SCH ×4 (08:00→21:28)
[2017-03-02 08:05] LABS: BASOPHILS % (AUTO) 0.2 % (0-3); MONOCYTES % (AUTO) 7.1 % (4-12); Mean Corpuscular Volume 83.7 fL (81-100); NEUTROPHILS % (AUTO) 54.3 % (40-74); Platelet Count 139 bil/L (150-400)
[2017-03-02] MEDS: Senna-Docusate 8.6-50 mg Tablet PO SCH ×2 (08:30→20:30)
--- NOTE | 2017-03-02 11:53 | PCM.PNMED ---
Subjective Date of Service Mar 02, 2017 Subjective No significant complaints overnight, no chest pain reported this morning. No shortness breath or fever. Stress test today, apparently cardiology was do a resting stress test tomorrow as well. Exam Vital Signs Vital Sign - Last Date Time Temp Pulse Resp B/P Pulse Ox O2 Delivery O2 Flow Rate FiO2 03/02/17 11:19 37.0 98 18 151/90 100 Room Air 03/01/17 09:54 3.00 Intake and Output 03/01/17 03/01/17 03/02/17 Cumulative From/Thru 15:00 23:00 07:00 02/27/17 22:33 - 03/02/17 06:14 Intake Total 1894 ml 1104 ml 5978 ml Output Total 600 ml 1950 ml Balance 1294 ml 1104 ml 4028 ml Intake Oral 886 ml 300 ml 2406 ml IV Total 1008 ml 804 ml 3572 ml Output Urine Total 600 ml 1950 ml # Voids 1 1 # Bowel Movements 0 Exam Gen.- A+ O 3 no apparent distress. Obese female Eyes- open conjunctiva clear, pupils equal nonicteric Mouth- oral mucosa moist, no exudate ENT- ears normal, nose normal Neck- supple/trach midline CVS- RRR no murmur or gallop Lungs- CTA GI- NABS/NT soft, tender in the right upper quadrant in particular Musc- moving 4 no obvious deformity Neuro- cranial nerves II through XII intact to gross examination, nonfocal Skin- warm and dry, no rashes/lesions/wounds noted Psych- pleasant and appropriate IVs and Medications Medications Reviewed: Medications were reviewed in detail Lab and Diagnostics Result Diagram: 03/02/17 0755 03/02/17 0720 X-Rays, CTs and MRIs HIDA-normal 02/28 Limited ultrasound spleen-normal 02/28 Chest Xray Impression: No acute cardiopulmonary process. 02/28 CTA Chest - Report reviewed no sign of PE 02/28 CT Abdomen and Pelvis -Report reviewed enlarged spleen at 13 cm, steatohepatitis, no sign of diverticulosis, abscess, 02/28 12-lead ECG ECG Interpretation: Normal sinus rhythm, Rate 99 no ischemic changes Time: 22:45 Interpreted by: ED physician ECG Interpretation: Sinus rhythm, Rate 96 No acute ischemic changes Time: 01:58 Interpreted by: ED physician Reviewed and agree with interpretation Cardiac Echo Impressions Echo 02/28 Interpretation Summary The left ventricular cavity is small. The ejection fraction is estimated to be 65-70%. The right ventricle is grossly normal size. The right ventricular systolic function is normal. No significant valvular pathology seen. The IVC is of normal diameter and collapses greater than 50% with a sniff. This suggests a low right atrial pressure of 3 mm Hg. Assessment & Plan Patient is a 61 y.o. F with a medical history of SVT status post cardiac ablation, lupus, diabetes mellitus, hyperlipidemia, and hypertension. Patient admitted for treatment of abdominal pain, r/o ACS and PE. 02/28 extensive workup in patient with ongoing symptoms thus far unrevealing, HIDA scan done in lieu of Myoview. This cannot be done until Friday 03/02 if it needs to be done. Patient continues to have abdominal/epigastric pain without EKG changes or troponin no significant improvement with GI cocktail.. Patient has some prominence of stool in the right upper quadrant on her CT scan perhaps bowel cleansing and motility abnormality. After a pretty extensive workup with find no abnormalities, patient continues to have pain probably IBS, might be able to discharge home 03/02 after nuclear stress done. She continues to eat and her vitals are stable despite her ongoing complaints of pain and discomfort. # Chest/epigastric pain- doubt cardiac - CTA chest negative for PE, - Serial EKG done in ED show no signs of ST changes concerning for NSTEMI/STEMI, troponins negative - Stress test today, resting stress test portion tomorrow #Hypotension- SBP 100-120 off lisinopril #Borderline UA, mixed urogenital culture, not consistent with active infection #Abdominal pain, improving negative HIDA as above - Localized to right flank per pt history, physical exam findings of RUQ and LUQ pain, consider opioid induced constipation, gastritis, developing SBO, splenic vein infarct (albeit negative splenic injury on ultrasound). - We will give MiraLAX today, consider Relistor if no BM # Enlarged spleen, unknown chronicity- ultrasound did not showed normal spleen 11.2 cm 02/28 h/o Lupus Discoid and systemic - No home medications, pt controls flares of rash with OTC hydrocortisone cream Fibromyalgia- Hold home medication, continue with pain management as above #1 SVT s/[place] [address] [place], presumed stable- Continue to monitor DM, type 2- BS 120-190 with Lantus 20 units - Patient take Lantus 30 units in AM, no correctional insulin at home - Continue AM lantus at 20 units - Medium correctional scale ordered HTN- home medication lisinopril held HLD- - Continue statin Anxiety- Lorazepam 0.5 mg TID PRN anxiety TIA 4 years ago, presumed stable - continue to monitor - No focal neurological deficit on exam Chronic back pain Hypothyroidism - Continue home levothyroxine Migraine headaches - Continue acetaminophen PRN 650 mg PO Q8 Depression - Last med rec on file from out patient 06/25/16 is not up to date per patient - Abilify 5 mg BID PO in file, patient states this is not the right medication, but is not sure what medication or dose is - PCP Dr. Landa, hold depression medication until records are obtained or patient can have someone bring in the bottle to confirm - Pharmacy [facility] in [place] [phone], requested RN to confirm medication rec with pharmacist who will not be in until 0900 CODE STATUS FULL CODE DVT: SCD, SQ heparin GI: Famotidine Patient is admitted under inpatient status with expected length of stay greater than 2 midnights due to severity of presenting symptoms, risk of adverse event, and complexity of treatment plan. GI Prophylaxis: H2 bob VTE Prophylaxis: Sub-Q Heparin (Unfractionated) VTE Mechanical Devices: Intermittant Pneumatic CD Resuscitation Status: CPR: Attempt Resuscitation Time spent 35 minutes spent with evaluation and management Attending Statement Likely discharge tomorrow after resting stress test scan pending stable clinical results Uriel Davis DO Mar 02, 2017 11:53
--- NOTE | 2017-03-02 12:11 | NUR ---
StressTest-OffUnit/BM Pt off unit at 0940 for stress test, call from tech prior to pt pickup. A&Ox3, MYLENE, JAMEY, Tele off for procedure - tech aware, No c/o pain, IV SL - pt ready to go. Pt returned to unit ~1110. BM: Pt had stated this AM that she had not had a BM for a couple of days, wanted to wait to take her AM medications which included stool softeners. Upon return, pt stated she did have BM when she was down for procedure. Stated they did not save or take a sample. Stated she was no longer going to take the stool softeners as she had BM today. Care continues. Addendum: 03/02/17 at 1809 by GRISELDA THOMPSON RN At 1300, pt with XL BM, marino valentin Guaiac sent to lab.
[2017-03-02] MEDS: Insulin GLARgine 100 Unit/mL Syringe SUBQ SCH (12:19)
[2017-03-02] MEDS: LORazepam 0.5 mg Tablet PO PRN (14:33)
[2017-03-03] MEDS: LORazepam 0.5 mg Tablet PO PRN (00:09)
[2017-03-03 00:10] VITALS: BP 140/86; PULSE 71; RESP 18; O2SAT 98
--- NOTE | 2017-03-03 04:52 | NUR ---
INSOMNIA Pt c/o unable to get to sleep, first night with this problem since she has been here. Paged for melatonin. To get pt medications before midnight, gave Tramadol at 2330 as pt also c/o leg pain. Effective for pain, but pt unable to sleep. Gave gabapentin to help with pain and ativan at 0000. Pt asleep at 0100, also ordered melatonin after midnight. Continuing care.
[2017-03-03] MEDS: Heparin 5,000 Unit/mL Inj SUBQ SCH ×2 (04:59→10:19)
[2017-03-03 05:00] VITALS: BP 121/80; PULSE 60; RESP 18; O2SAT 98
[2017-03-03 05:06] LABS: BASOPHILS % (AUTO) 0.2 % (0-3); EOSINOPHILS % (AUTO) 2.3 % (0-5); Mean Corpuscular Hemoglobin 27.1 pg (27.0-35.0); Mean Corpuscular Volume 84.4 fL (81-100); NEUTROPHILS % (AUTO) 49.9 % (40-74); Platelet Count 140 bil/L (150-400)
[2017-03-03] MEDS: 0.9% Sodium Chloride 1,000 ML IV SCH (06:24)
[2017-03-03] MEDS: Insulin LISPRO 300 Unit/3 mL Inj SUBQ SCH ×2 (07:19→12:00)
[2017-03-03] MEDS: Senna-Docusate 8.6-50 mg Tablet PO SCH (08:30)
--- NOTE | 2017-03-03 08:40 | NUR ---
Off Unit Patient off floor for stress test via W/C.
[2017-03-03 08:44] VITALS: PULSE 86
--- NOTE | 2017-03-03 09:00 | NUR ---
Back on Unit Patient back on floor from stress test.
[2017-03-03 09:07] VITALS: BP 142/84; PULSE 85; RESP 18; O2SAT 97
[2017-03-03] MEDS: Sodium Chloride LOK Flush 10 mL Syringe IVFLUSH SCH (10:19)
[2017-03-03] MEDS: Insulin GLARgine 100 Unit/mL Syringe SUBQ SCH (10:25)
--- NOTE | 2017-03-03 10:36 | PCM.DIMED ---
Discharge Instructions Date of Service Mar 02, 2017 Dates of Hospitalization Feb 28, 2017 at 00:58 Discharge Diagnosis Discharge Diagnosis History of SVT status post cardiac ablation Lupus, discoid and systemic Diabetes mellitus hyperlipidemia Hypertension Fibromyalgia Anxiety Hypothyroidism History of TIA Depression Migraine Test Results CT abdomen IMPRESSION: 1. No acute interval abdominal/pelvic process. 2. Hepatosplenomegaly. This finding is nonspecific and requires clinical correlation and follow up. 3. Tiny fat-containing umbilical hernia. 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 Dictated by: Bebo Hale M.D. on 02/28/2017 at 9:18 Ultrasound IMPRESSION: Limited exam demonstrating normal appearance of the spleen. Dictated by: Deniz Moran RRA Interpreted: Noemy Craig MD on 02/28/2017 at 10:37 PROCEDURE: NM HIDA SCAN WITH CCK PHARMACEUTICAL: 4.83 mCi Tc-99m mebrofenin IV; 1.78 mcg CCK IV. INDICATIONS: ruq pain. TECHNIQUE: Following intravenous administration of Tc-99m mebrofenin, sequential anterior abdominal images were obtained. To evaluate the contractile response of the gallbladder in response to Cholecystokinin (CCK), sincalide (0.02 g/kg) was administered by slow intravenous infusion approximately 60 minutes after the administration of the radiopharmaceutical. Sequential imaging was continued for [address] the start of CCK infusion. Gallbladder ejection fraction was calculated. COMPARISON: None. FINDINGS: Biliary scan: There is normal tracer uptake and excretion by the liver. There is normal visualization of the intrahepatic ducts, common bile duct, and gallbladder. There is normal tracer transit into the duodenum. CCK stimulation: There is normal contractile response of the gallbladder to CCK infusion. The calculated gallbladder ejection fraction is 78%; normal values are above 35%. It has been shown that any patient abdominal pain after CCK administration is related to the rate of CCK injection, rather than to any underlying gallbladder disease (Clinical Nuclear Medicine 2012; 37: 63-70. Journal of Nuclear Medicine 2014; 55: 1-9). IMPRESSION: Normal examination. Dictated by: Noemy Craig MD, PhD on 02/28/2017 at 13:33 Approved by: Noemy Craig MD, PhD on 02/28/2017 at 13:38 Diet Low fat, Low Sodium, Heart Healthy, Diabetic Activity No restrictions Call your provider Fever or Chills, Shortness of breath, Bleeding, Chest pain, Vomitting, Excessive diarrhea Patient Instructions Mrs. Hilton, we evaluated her chest pain and it does not look like his from a cardiac source after evaluation with a stress test. We also looked at your liver, gallbladder and spleen with multiple modalities of imaging which did not show any acute process or could be causing her pain. This makes me think that her pain may be more musculoskeletal versus some manifestation of heartburn. Silvia recommend you continuing a heartburn medication such as famotidine twice daily to control the reflux which you have been given here in the hospital and it appears your symptoms have moderately improved after discussion today. Please follow-up with your primary care physician within one week Follow-up plan As above Follow-up Provider: Tyson Ramirez MD Follow-up with PCP in: 1 week Uriel Davis DO Mar 02, 2017 11:47
--- NOTE | 2017-03-03 10:44 | PCM.DC.MED ---
Discharge Summary Date of Service Mar 03, 2017 Dates of Hospitalization Date of Hospital Admission Feb 28, 2017 at 00:58 Date of Discharge: Mar 03, 2017 Providers: Admitting Physician: Rose Lei DO Primary Care Physician: Tyson Ramirez MD Attending Physician: Rose Lei DO Diagnosis at Time of Discharge Diagnosis at Time of Discharge History of SVT status post cardiac ablation Lupus, discoid and systemic Diabetes mellitus hyperlipidemia Hypertension Fibromyalgia Anxiety Hypothyroidism History of TIA Depression Migraine Procedures XRay, CTs & MRIs HIDA-normal 02/28 Limited ultrasound spleen-normal 02/28 Chest Xray Impression: No acute cardiopulmonary process. 02/28 CTA Chest - Report reviewed no sign of PE 02/28 CT Abdomen and Pelvis -Report reviewed enlarged spleen at 13 cm, steatohepatitis, no sign of diverticulosis, abscess, 02/28 Nuclear stress, no report of abnormality, resting portion to be done this morning. If negative patient will be discharged ECG 12 Lead ECG Interpretation: Normal sinus rhythm, Rate 99 no ischemic changes Time: 22:45 Interpreted by: ED physician ECG Interpretation: Sinus rhythm, Rate 96 No acute ischemic changes Time: 01:58 Interpreted by: ED physician Reviewed and agree with interpretation Cardiac Echo Impression Echo 02/28 Interpretation Summary The left ventricular cavity is small. The ejection fraction is estimated to be 65-70%. The right ventricle is grossly normal size. The right ventricular systolic function is normal. No significant valvular pathology seen. The IVC is of normal diameter and collapses greater than 50% with a sniff. This suggests a low right atrial pressure of 3 mm Hg. Brief History History of present illness as per admitting physician: Patient is a 61 y.o. F with a medical history of SVT status post cardiac ablation, lupus, diabetes mellitus, hyperlipidemia, and hypertension. She presented to the ED 02/27/17 via private vehicle complaining of chest pain that began suddenly at 2200 in the evening while getting ready for bed. Pain is described as someone "sitting" on her chest, rated 8/10 at the worse and currently 2/10, with radiation down into her upper right abdomen and her back, fluctuates in scale but remains constant. Pain is made worse with exertion and improves with rest. Associated symptoms include nausea, shortness of breath with exertion. Patient denies diaphoresis, palpitations, vomiting. At time of examination patient stated the pain medications in the ED have helped and she feels like her abdominal/flank pain is worse, she denies current shortness of breath. Patient stated that she has had right sided flank pain that has been present for almost a year that worsened two days ago, patient stated that pain is cramping sometimes sharp, with radiation down right flank to hip, abdomen, back , increased with laying flat, decreases with pain medication. Associated symptoms include dysuria, constipation (patient stated that she has tried multiple OTC remedies for constipation with little to no effect, last BM two days ago, without blood, patient is able to pass gas). Patient stated that she has chronic back pain and has had to increase her use of hydrocodone to help with pain, stated she has been doubling her dose. Patient denies syncope, fever , chills, diarrhea, PND, orthopnea. Patient stated that her primary care physician has ordered a repeat upper and lower endoscopy but she has been unable to complete the bowel preparation, additionally PCP ordered an abdominal US to be done but patient has not scheduled appointment yet In the ED patient given nitroglycerin x 2 with minimal relief, rebound headache occurred, trial of GI cocktail had no effect on abdominal pain, Dilaudid x 2 was successful in improving pain but did not completely resolve it, lorazepam was given and this further helped her pain. Give risck factors for hypercoagulable state patient was sent for CTA chest and CT abdomen and pelvis, CT scans were positive for hyposteatosis and splenomegaly (13cm) but negative for PE, infection, abscess. Patient reassessed and stated that her chest pain has improved, however, her abdominal pain still persists. Hospital Course Patient is a 61 y.o. F with a medical history of SVT status post cardiac ablation, lupus, diabetes mellitus, hyperlipidemia, and hypertension. Patient admitted for treatment of abdominal pain, r/o ACS and PE. 02/28 extensive workup in patient with ongoing symptoms thus far unrevealing, HIDA scan done in lieu of Myoview. This cannot be done until Friday 03/02 if it needs to be done. Patient continues to have abdominal/epigastric pain without EKG changes or troponin no significant improvement with GI cocktail.. Patient has some prominence of stool in the right upper quadrant on her CT scan perhaps bowel cleansing and motility abnormality. After a pretty extensive workup with find no abnormalities, patient continues to have pain probably IBS, might be able to discharge home 4/ after nuclear stress done. She continues to eat and her vitals are stable despite her ongoing complaints of pain and discomfort. # Chest/epigastric pain- doubt cardiac - CTA chest negative for PE, - Serial EKG done in ED show no signs of ST changes concerning for NSTEMI/STEMI, troponins negative - Stress test being completed today, if negative patient will be discharged with likely musculoskeletal pain that patient does describe as positional, usually at night when she is going down for bed. I discussed continuing an H2 bob which she has been taking while hospitalized and patient states pain is moderately improved so this may be from a heartburn etiology. I do believe patient also has chronic constipation with likely opioid induced symptoms well, stool softeners improved this while hospitalized. #Hypotension- SBP 100-120 off lisinopril, then placed back on and blood pressures have been stable and hypotension resolved #Borderline UA, mixed urogenital culture, not consistent with active infection #Abdominal pain, improving negative HIDA as above - Localized to right flank per pt history, physical exam findings of RUQ and LUQ pain, consider opioid induced constipation as above, gastritis, developing SBO, splenic vein infarct (albeit negative splenic injury on ultrasound). - Continue MiraLAX today, consider Relistor if no BM in future, did have 1 large BM yesterday # Enlarged spleen, unknown chronicity- ultrasound did not showed normal spleen 11.2 cm 02/28 h/o Lupus Discoid and systemic - No home medications, pt controls flares of rash with OTC hydrocortisone cream Fibromyalgia- Hold home medication, continue with pain management as above #1 SVT s/p [place] [address] [place], presumed stable- Continue to monitor DM, type 2- BS 120-190 with Lantus 20 units - Patient take Lantus 30 units in AM, no correctional insulin at home, discharged to continue home regimen, blood sugars fairly well controlled, go back up to 30 units of Lantus given patient's diet may change with absence of correctional insulin at home as well - Continue AM lantus at 20 units - Medium correctional scale ordered HTN- home medication lisinopril held HLD- - Continue statin Anxiety- Lorazepam 0.5 mg TID PRN anxiety, while hospitalized TIA 4 years ago, presumed stable - continue to monitor - No focal neurological deficit on exam Chronic back pain Hypothyroidism - Continue home levothyroxine Migraine headaches - Continue acetaminophen PRN 650 mg PO Q8 Depression - Last med rec on file from out patient 06/25/16 is not up to date per patient - Abilify 5 mg BID PO in file, patient states this is not the right medication, but is not sure what medication or dose is - PCP Dr. Landa, hold depression medication until records are obtained or patient can have someone bring in the bottle to confirm - Pharmacy [facility] in [place] [phone] CODE STATUS FULL CODE DVT: SCD, SQ heparin GI: Famotidine Patient is admitted under inpatient status with expected length of stay greater than 2 midnights due to severity of presenting symptoms, risk of adverse event, and complexity of treatment plan. Exam Vital Signs (Last) Date Time Temp Pulse Resp B/P Pulse Ox O2 Delivery O2 Flow Rate FiO2 03/03/17 09:07 36.6 85 18 142/84 97 Room Air 03/01/17 09:54 3.00 Exam Gen.- A+ O 3 no apparent distress. Obese female Eyes- open conjunctiva clear, pupils equal nonicteric Mouth- oral mucosa moist, no exudate ENT- ears normal, nose normal Neck- supple/trach midline CVS- RRR no murmur or gallop Lungs- CTA GI- NABS/NT soft, tender in the right upper quadrant in particular Musc- moving 4 no obvious deformity Neuro- cranial nerves II through XII intact to gross examination, nonfocal Skin- warm and dry, no rashes/lesions/wounds noted Psych- pleasant and appropriate Test 02/27/17 23:20 02/28/17 00:00 02/28/17 01:40 02/28/17 05:00 D-Dimer 0.90mg/L FEU (<0.50) Hemoglobin A1c 9.6% (4.8-5.6) Lipase 25U/L (13-60) Hold James Top Tube Received (Received) Prothrombin Time 10.0sec (8.1-12.5) Prothromb Time International Ratio 0.94ratio Activated Partial Thromboplast Time 24.7sec (22.8-33.0) Magnesium Level 1.7mg/dL (1.6-2.6) Lactate Dehydrogenase 264U/L (100-190) Thyroid Stimulating Hormone (TSH) 4.930uIU/mL (0.450-4.500) Urine Color Yellow (YELLOW) Urine Appearance Hazy (CLEAR,HAZY) Urine pH 5.5 (5.0-8.0) Urine Specific [place] 1.025 (1.003-1.035) Urine Protein Negativemg/dL (NEG,TRACE) Urine Glucose (UA) Negativemg/dL (NEGATIVE) Urine Ketones Negativemg/dL (NEGATIVE) Urine Occult Blood Trace (NEGATIVE) Urine Nitrite Negative (NEGATIVE) Urine Bilirubin Negative (NEGATIVE) Urine Urobilinogen Normalmg/dL (NORMAL) Urine Leukocyte Esterase Moderate (NEGATIVE) Urine RBC 0-2/hpf (0-2) Urine WBC 6-10/hpf (0-5) Urine Epithelial Cells Few/hpf (NONE-MOD) Urine Crystals None seen (NONE SEEN) Urine Bacteria Moderate/hpf (NONE-FEW) Urine Hyaline Casts None/lpf (NONE) Urine Granular Casts None seen (NONE SEEN) Urine Waxy Casts None seen (NONE SEEN) Urine Red Blood Cell Casts None seen (NONE SEEN) Urine White Blood Cell Casts None seen (NONE SEEN) Urine Mucus None seen (None Seen) Urine Trichomonas None seen (NONE SEEN) Urine Yeast Few (NONE SEEN) Urinalysis Comment Urine Culture Reflexed Indicated Total Bilirubin 0.2mg/dL (0.0-1.2) Aspartate Amino Transf (AST/SGOT) 28U/L (0-50) Alanine Aminotransferase (ALT/SGPT) 27U/L (0-32) Alkaline Phosphatase 66U/L (25-165) Total Protein 7.3g/dL (6.4-8.4) Albumin 4.0g/dL (3.4-5.0) Test 03/01/17 05:45 03/03/17 04:50 Troponin T 0.010ug/L (0.0-0.011) Triglycerides Level 178mg/dL (0-149) Cholesterol Level 136mg/dL (100-199) LDL Cholesterol, Calculated 65.400mg/dL (0-99) VLDL Cholesterol 35.600mg/dL HDL Cholesterol 35mg/dL (>39) Cholesterol/HDL Ratio 3.89 (0.0-4.4) White Blood Count 5.2th/mm3 (3.8-10.1) Red Blood Count 3.65mil/mm3 (3.90-5.20) Hemoglobin 9.9g/dL (12.0-15.6) Hematocrit 30.8% (35.0-46.0) Mean Corpuscular Volume 84.4fL (81-100) Mean Corpuscular Hemoglobin 27.1pg (27.0-35.0) Mean Corpuscular Hemoglobin Concent 32.1% (32.0-37.0) Red Cell Distribution Width 14.4% (12.3-15.4) Platelet Count 140bil/L (150-400) Neutrophils (%) (Auto) 49.9% (40-74) Lymphocytes (%) (Auto) 42.4% (14-46) Monocytes (%) (Auto) 5.0% (4-12) Eosinophils (%) (Auto) 2.3% (0-5) Basophils (%) (Auto) 0.2% (0-3) Sodium Level 139mEq/L (134-144) Potassium Level 4.2mEq/L (3.5-5.2) Chloride Level 104mEq/L (97-108) Carbon Dioxide Level 20mmol/L (18-29) Blood Urea Nitrogen 9mg/dL (8-27) Creatinine 0.60mg/dL (0.57-1.00) Estimat Glomerular Filtration Rate 145mL/min (>59) Glucose Level 95mg/dL (60-99) Calcium Level 8.7mg/dL (8.5-10.1) Discharge Medications Discharge Medications Aspirin (Aspirin) 81 Mg Tablet 81 MG PO DAILY (Reported) Atorvastatin Calcium (Atorvastatin Calcium) 20 Mg Tablet 20 MG PO DAILY ( Reported) Famotidine (Pepcid) 20 Mg Tablet 20 MG PO BID Prescribed by: CAREY DAVIS DO Insulin Glargine (Lantus U100 Insulin Vial) 100 Unit/Ml Vial 30 UNIT SUBQ MORNING (Reported) Lisinopril (Lisinopril) 40 Mg Tablet 40 MG PO BID (Reported) Sertraline HCl (Sertraline) 50 Mg Tablet 50 MG PO DAILY (Reported) As needed Clonazepam (Clonazepam) 2 Mg Tablet 2 MG PO QID PRN PRN For Anxiety (Reported) Cyclobenzaprine (Cyclobenzaprine) 10 Mg Tablet 10 MG PO HS PRN PRN Spasm ( Reported) Polyethylene Glycol 3350 (Miralax) 17 Gm Powd.pack 17 GM PO DAILY PRN PRN For Constipation Prescribed by: CAREY DAVIS DO oxyCODONE-Acetaminophen 5-325 mg (oxyCODONE-Acetaminophen 5-325 mg) 1 Each Tablet 1 TAB PO Q4H PRN PRN For Pain (Reported) Miscellaneous Medications Levothyroxine Sodium (Levo-T) 50 Mcg Tablet 50 MCG PO (Reported) Followup Plan Follow-up plan As above Discharge Diet: Low fat, Low Sodium, Heart Healthy, Diabetic Discharge Activity: No restrictions Patient Instructions Mrs. Hilton, we evaluated her chest pain and it does not look like his from a cardiac source after evaluation with a stress test. We also looked at your liver, gallbladder and spleen with multiple modalities of imaging which did not show any acute process or could be causing her pain. This makes me think that her pain may be more musculoskeletal versus some manifestation of heartburn. Silvia recommend you continuing a heartburn medication such as famotidine twice daily to control the reflux which you have been given here in the hospital and it appears your symptoms have moderately improved after discussion today. Please follow-up with your primary care physician within one week Follow-up Provider: Tyson Ramirez MD Follow-up with PCP in: 1 week Time spent 40 minutes spent with evaluation and management including discharge. Greater than 50% that time was spent [id number] coordination and care included Carey Davis DO Mar 03, 2017 10:44
[2017-03-03] MEDS ORDERED: POLY17PO6 PO (10:55)
[2017-03-03] MEDS ORDERED: FAMO20T PO (10:55)
--- NOTE | 2017-03-03 11:38 | DRSVH ---
PROCEDURE: 2 DAY STRESS TEST Rest and exercise myocardial perfusion SPECT with gated imaging and ejection fraction RADIOPHARMACEUTICAL: 23.1 mCi Tc-99m tetrafosmin IV at rest and 22.0 mCi Tc-99m tetrafosmin IV at pea k exercise. [id number] was performed. INDICATIONS: CHEST PAIN. TECHNIQUE: Radiopharmaceutical was injected at peak stress test, and also at rest. SPECT images wer e obtained. SPECT myocardial perfusion images were displayed in short axis, horizontal long axis, an d vertical long axis views. Gated images were reviewed using A V.E.T.S.c.a.r.e.QUANT software. COMPARISON: [place], [place], MYOCARD PERF SPECT SINGLE, 01/11/2010, 9:32. CARDIAC STRESS: A standard Andrew treadmill exercise tolerance test was performed by the patient under the supervision of an attending staff. The patient exercised for 2 minutes and 49 seconds; functional aerobic impai rment (BEATA) is +58 %. Hemodynamic data: There is normal blood pressure and heart rate response to exercise stress. Patien t achieved 92% of maximum predicted heart rate at peak exercise. Symptoms: Patient denied chest pain during exercise. EKG: No diagnostic EKG changes of ischemia; no ectopy. FINDINGS: Raw data: There is good myocardial labeling by radiotracer. No significant motion artifacts. There is prominent breast attenuation artifact. Left ventricle function: Gated images demonstrate normal left ventricle wall thickening. No segment al wall motion abnormality. No transient ischemic dilation. The left ventricle resting end-diastoli c volume is normal. Left ventricle stress ejection fraction is greater than 70%; normal values are a bruno 45%. Myocardial perfusion: There is mildly decreased activity in the anterior wall and septum, which is i mproved on prior imaging, likely caused by attenuation artifacts. There is otherwise normal distribut ion of activity in the left and right ventricular myocardium. Comparison to prior examinations: Compared with the last examination on 01/11/2010, there is no signif icant change. IMPRESSION: 1. Normal myocardial perfusion images. 2. Normal left ventricular volume and systolic function. 3. Severely limited exercise capacity. No chest pain or diagnostic EKG changes for ischemia. PQRS ATTESTATIONS: Measure 322 - Is this imaging test primarily performed on a low-risk surgery patient for preoperative evaluation within 30 days preceding their low-risk non-cardiac surgery? Low-risk surgery is defined as cardiac or myocardial infarction less than 1%, including (but not limited to) endoscopic pr ocedures, superficial procedures, cataract surgery, and excisional breast surgery: Answer: No Measure 323 - Is this imaging test performed primarily for the monitoring of an asymptomatic patient who had percutaneous coronary intervention on the visit date or within 2 years of the visit date? An swer: No Measure 324 - Is this imaging test performed primarily for the initial detection and risk assessment on an asymptomatic, low coronary heart disease patient? Low CHD risk definition = clinicians should consider the maximum number of available patient factors used to estimate risk based on [place] (A TP III criteria), typically age, gender, diabetes, smoking status, and use of blood pressure medicati on, and integrate age appropriate estimates for missing elements, such as LDL or standard blood press ure. Answer: No Dictated by: Bebo Hale M.D. on 03/03/2017 at 11:27 Approved by: Bebo Hale M.D. on 03/03/2017 at 11:36
--- NOTE | 2017-03-03 15:03 | NUR ---
Discharge Patient discharged home. IV DC'd and intact. Discharge instructions given with no questions. RX Miralax and Pepcid given to patient. Nuclear medicine department security personnel and law enforcement notification given to patient. Patient denied pain and nausea at the time of discharge. Patient gathered all belongings. Nurse escorted patient out via walking.
== END 2017-03-03 14:43 | disposition home or self-care (01) ==
LOC: SED 22:32 → INTOOBSV 02-28 00:58 → OSC 02-28 00:58 → OBSVTOIN 02-28 00:58 → OSC 03-01 01:27
PROVIDERS: ADMIT Internal Medicine; ATTEND Internal Medicine
DX: R07.89 Other chest pain (principal); I20.8 Other forms of angina pectoris; I10 Essential (primary) hypertension; E11.9 Type 2 diabetes mellitus without complications; L93.0 Discoid lupus erythematosus; E03.9 Hypothyroidism, unspecified; Z79.4 Long term (current) use of insulin; E78.5 Hyperlipidemia, unspecified; M79.7 Fibromyalgia; F41.9 Anxiety disorder, unspecified; R10.11 Right upper quadrant pain
CPT/HCPCS: 36415; 71010; 71275; 74177; 76705; 78227; 78452; 80048; 80053; 80061; 81000; 82274; 82948; 83036; 83615; 83690; 83735; 84443; 84484; 85025; 85378; 85610; 85730; 87086; 87088; 93005; 93017; 96360; 99285; A9502; A9537; C8929; G0378; J1170; J1644; J1815; J2060; J2805; J3490; J7030; J7040; Q9967